=== PATIENT | female | born 1990 | race Caucasian/White ===

== ENCOUNTER → 2017-09-01 | Outpatient (REF) | payer OTHER ==
[2017-09-01 22:26] LABS: INFLUENZA A AMPLIFICATION POSITIVE (NEGATIVE); INFLUENZA B AMPLIFICATION NEGATIVE (NEGATIVE); RSV AMPLIFICATION NEGATIVE (NEGATIVE)
== END ==
LOC: M LAB REF 09-05 11:22
DX: J11.1 Influenza due to unidentified influenza virus with other respiratory manifestations (principal)
CPT/HCPCS: 87631

== ENCOUNTER → 2017-10-24 | Outpatient (REF) | payer OTHER ==
[2017-10-24 12:12] LABS: CONTROL LINE HCG INT CTR LINE PRESENT; CONTROL LINE MONO RF C INT CTR LINE PRESENT; HCG, SERUM QUALITATIVE NEGATIVE (NEGATIVE); MONO REFLEX EBV COMP NEGATIVE (NEGATIVE)
[2017-10-24 12:14] LABS: BASO % 0.6 % (0.0-1.0); EOS # 0.3 10^3/uL (0.0-0.50); EOS % 3.6 % (0.0-3.0); HEMATOCRIT 38.6 % (36.0-47.0); HEMOGLOBIN 12.6 g/dl (12.0-16.0); IMMATURE GRANULOCYTE % 0.3 % (0-3.0); LYMPH # 2.3 10^3/uL (1.5-6.5); LYMPH % 33.4 % (24.0-44.0); MEAN CORPUSCULAR HEMOGLOBIN 31.2 pg (27.0-33.0); MEAN CORPUSCULAR HGB CONC 32.6 g/dl (32.0-36.5); MEAN CORPUSCULAR VOLUME 95.5 fl (80.0-96.0); MONO # 0.6 10^3/uL (0.0-0.8); MONO % 8.9 % (0.0-5.0); NEUTROPHILS # 3.7 10^3/uL (1.8-7.7); NEUTROPHILS % 53.2 % (36.0-66.0); PLATELET COUNT, AUTOMATED 200 10^3/uL (150-450); RED BLOOD COUNT 4.04 10^6/uL (4.00-5.40); RED CELL DISTRIBUTION WIDTH 12.6 % (11.5-14.5); WHITE BLOOD COUNT 6.9 10^3/uL (4.0-10.0)
[2017-10-24 12:36] LABS: ALBUMIN 4.2 GM/DL (3.2-5.2); ALKALINE PHOSPHATASE 47 U/L (45-117); ALT/SGPT 15 U/L (12-78); ANION GAP 5 MEQ/L (8-16); AST/SGOT 13 U/L (7-37); BILIRUBIN,TOTAL 0.5 MG/DL (0.2-1.0); BLOOD UREA NITROGEN 16 MG/DL (7-18); CALCIUM LEVEL 8.8 MG/DL (8.5-10.1); CARBON DIOXIDE LEVEL 25 MEQ/L (21-32); CHLORIDE LEVEL 112 MEQ/L (98-107); CREATININE FOR GFR 0.76 MG/DL (0.55-1.30); FREE T4 0.96 NG/DL (0.76-1.46); GLOMERULAR FILTRATION RATE > 60.0 (>60); GLUCOSE, FASTING 81 MG/DL (70-100); POTASSIUM SERUM 4.2 MEQ/L (3.5-5.1); SODIUM LEVEL 142 MEQ/L (136-145); TOTAL PROTEIN 7.2 GM/DL (6.4-8.2)
[2017-10-26 00:08] LABS: EBV VIRAL CAPSID AG IgM <36.0 U/mL (0.0-35.9)
[2017-10-26 00:08] LABS: EBV AB TO NUCLEAR ANTIGEN 81.9 U/mL (0.0-17.9)
== END ==
LOC: M SFHCPLAZ 08:55
DX: Z00.00 Encounter for general adult medical examination without abnormal findings (principal); R11.2 Nausea with vomiting, unspecified; R59.0 Localized enlarged lymph nodes

== ENCOUNTER → 2018-02-15 | Outpatient (CLI) | payer OTHER ==
[2018-02-15 16:34] LABS: BASO % 0.5 % (0.0-1.0); EOS # 0.1 10^3/uL (0.0-0.50); EOS % 1.4 % (0.0-3.0); HEMATOCRIT 38.2 % (36.0-47.0); HEMOGLOBIN 12.7 g/dl (12.0-15.5); IMMATURE GRANULOCYTE % 0.3 % (0-3.0); LYMPH # 2.1 10^3/uL (1.5-6.5); MEAN CORPUSCULAR HGB CONC 33.2 g/dl (32.0-36.5); MEAN CORPUSCULAR VOLUME 96.2 fl (80.0-96.0); MONO # 0.4 10^3/uL (0.0-0.8); MONO % 6.6 % (0.0-5.0); NEUTROPHILS # 3.9 10^3/uL (1.8-7.7); NEUTROPHILS % 59.2 % (36.0-66.0); PLATELET COUNT, AUTOMATED 211 10^3/uL (150-450); RED BLOOD COUNT 3.97 10^6/uL (4.00-5.40); RED CELL DISTRIBUTION WIDTH 12.3 % (11.5-14.5); WHITE BLOOD COUNT 6.5 10^3/uL (4.0-10.0)
[2018-02-15 17:00] LABS: ALBUMIN 3.9 GM/DL (3.2-5.2); ALBUMIN/GLOBULIN RATIO 1.08 (1.00-1.93); ALKALINE PHOSPHATASE 40 U/L (45-117); ALT/SGPT 19 U/L (12-78); ANION GAP 7 MEQ/L (8-16); AST/SGOT 12 U/L (7-37); BILIRUBIN,TOTAL 0.5 MG/DL (0.2-1.0); BLOOD UREA NITROGEN 16 MG/DL (7-18); C REACTIVE PROTEIN QUANTITATIV < 0.30 MG/DL (0.00-0.30); CALCIUM LEVEL 8.9 MG/DL (8.5-10.1); CARBON DIOXIDE LEVEL 26 MEQ/L (21-32); CHLORIDE LEVEL 106 MEQ/L (98-107); CREATININE FOR GFR 0.85 MG/DL (0.55-1.30); GLOMERULAR FILTRATION RATE > 60.0 (>60); GLUCOSE, FASTING 96 MG/DL (70-100); POTASSIUM SERUM 4.7 MEQ/L (3.5-5.1); RHEUMATOID FACTOR QUANT < 10.0 IU/ML (<15.0); SODIUM LEVEL 139 MEQ/L (136-145); TOTAL PROTEIN 7.5 GM/DL (6.4-8.2); URIC ACID 2.4 MG/DL (2.6-6.0)
[2018-02-15 17:19] LABS: ERYTHROCYTE SEDIMENTATION RATE 5 mm/hr (0-20)
[2018-02-18 00:06] LABS: CYCLIC CITRULLINATED PEPTIDE 7 units (0-19)
[2018-02-18 00:06] LABS: ANTINUCLEAR ANTIBODIES DIRECT Negative (Negative)
== END ==
LOC: M LAB 15:42
DX: M25.461 Effusion, right knee (principal)
CPT/HCPCS: 73564

== ENCOUNTER → 2018-02-22 | Outpatient (CLI) | payer OTHER | LOC: M RAD 17:07 | DX: M79.89 Other specified soft tissue disorders (principal) | CPT/HCPCS: 93971 ==

== ENCOUNTER → 2018-05-23 | Outpatient (REF) | payer OTHER ==
[2018-05-23 17:47] LABS: RETICULOCYTE # 58.4 10^9/L (17-77); RETICULOCYTE % 1.4 % (0.5-1.5)
[2018-05-23 22:21] LABS: FERRITIN 21 NG/ML (8-252); IRON (FE) 110 UG/DL (50-170); PERCENT SATURATION 23.5 % (13.2-45.0); TOTAL IRON BINDING CAPACITY 469 UG/DL (250-450)
[2018-05-23 22:25] LABS: FOLATE 8.2 NG/ML (>5.4)
[2018-05-23 22:45] LABS: GOLD SPEC TUBE RECIEVED
== END ==
LOC: M SFHCPLAZ 16:09
DX: D53.9 Nutritional anemia, unspecified (principal)

== ENCOUNTER → 2018-11-23 | Outpatient (REF) | payer OTHER ==
[~2018-11-23] MED LIST: DOCU10CA PO; IBUP80TA PO; MAPA500T2 PO; MOM30SS PO; VITAPRTA PO
[2018-11-23 13:46] LABS: HEMATOCRIT 43.3 % (36.0-47.0); MEAN CORPUSCULAR HEMOGLOBIN 30.8 pg (27.0-33.0); MEAN CORPUSCULAR HGB CONC 32.3 g/dl (32.0-36.5); MEAN CORPUSCULAR VOLUME 95.2 fl (80.0-96.0); PLATELET COUNT, AUTOMATED 282 10^3/uL (150-450); RED BLOOD COUNT 4.55 10^6/uL (4.00-5.40); WHITE BLOOD COUNT 6.2 10^3/uL (4.0-10.0)
[2018-11-23 14:19] LABS: FREE T4 1.06 NG/DL (0.76-1.46); PERCENT SATURATION 27.9 % (13.2-45.0); THYROID STIMULATING HORMONE 0.467 uIU/ML (0.358-3.740)
[2018-11-23 14:35] LABS: TOTAL 25(OH) VITAMIN D 32.2 NG/ML (30.0-100.0)
== END ==
LOC: M SFHCPLAZ 10:21
PROVIDERS: ATTEND Nurse Practitioner Family
DX: D50.9 Iron deficiency anemia, unspecified (principal); R53.83 Other fatigue

== ENCOUNTER → 2019-02-15 | Outpatient (REF) | payer OTHER ==
[2019-02-16 11:59] LABS: CHLAMYDIA DNA AMPLIFICATION NEGATIVE (NEGATIVE); GC DNA AMPLIFICATION NEGATIVE (NEGATIVE)
== END ==
LOC: M SFHCPLAZ 09:58
PROVIDERS: ATTEND Nurse Practitioner Family
DX: Z01.419 Encounter for gynecological examination (general) (routine) without abnormal findings (principal); Z11.3 Encounter for screening for infections with a predominantly sexual mode of transmission

== ENCOUNTER → 2019-03-16 | Outpatient (REF) | payer OTHER ==
[2019-03-16 19:29] LABS: CHLAMYDIA DNA AMPLIFICATION NEGATIVE (NEGATIVE); GC DNA AMPLIFICATION NEGATIVE (NEGATIVE)
== END ==
LOC: M SFHCPLAZ 16:44
PROVIDERS: ATTEND Nurse Practitioner Family
DX: N76.0 Acute vaginitis (principal)

== ENCOUNTER → 2020-07-18 | Outpatient (REF) | payer OTHER | LOC: M LAB REF 19:24 | PROVIDERS: ATTEND Physician Assistant | DX: Z11.59 Encounter for screening for other viral diseases (principal) ==

== ENCOUNTER → 2020-10-28 | Outpatient (REF) | payer OTHER ==
[2020-10-28 20:39] LABS: CHLAMYDIA DNA AMPLIFICATION NEGATIVE (NEGATIVE); GC DNA AMPLIFICATION NEGATIVE (NEGATIVE)
== END ==
LOC: M LAB REF 17:12
PROVIDERS: ATTEND Nurse Practitioner Family
DX: Z11.3 Encounter for screening for infections with a predominantly sexual mode of transmission (principal)

== ENCOUNTER → 2022-04-14 | Outpatient (REF) | payer OTHER ==
[2022-04-15 13:11] LABS: GC DNA AMPLIFICATION NEGATIVE (NEGATIVE)
== END ==
LOC: M LAB REF 10:13
PROVIDERS: ATTEND Nurse Practitioner Family
DX: Z12.4 Encounter for screening for malignant neoplasm of cervix (principal)

== ENCOUNTER → 2022-06-17 | Outpatient (REF) | payer OTHER | LOC: M LAB REF 16:46 | PROVIDERS: ATTEND Registered Nurse | DX: N76.0 Acute vaginitis (principal) ==

== ENCOUNTER → 2023-10-13 | Outpatient (REF) | payer OTHER ==
[2023-10-13 18:52] LABS: Trichomonas vaginalis (AMP) NOT DETECTED (NEGATIVE)
[2023-10-13 19:16] LABS: GC DNA AMPLIFICATION NEGATIVE (NEGATIVE)
== END ==
LOC: M LAB REF 16:56
PROVIDERS: ATTEND Registered Nurse
DX: Z11.3 Encounter for screening for infections with a predominantly sexual mode of transmission (principal)

== ENCOUNTER → 2023-10-18 | Outpatient (REF) | payer OTHER | LOC: M LAB REF 17:02 | PROVIDERS: ATTEND Nurse Practitioner Family | DX: Z11.3 Encounter for screening for infections with a predominantly sexual mode of transmission (principal) ==

== ENCOUNTER → 2025-05-13 | Outpatient (REF) | payer OTHER ==
[~2025-05-13] MED LIST changes: +METH-1164 PO; +ROPI0.5T33
[2025-05-13 16:26] LABS: BASO # 0.1 10^3/uL (0.0-0.2); BASO % 1.1 % (0.0-1.0); EOS # 0.2 10^3/uL (0.0-0.5); EOS % 2.1 % (0.0-3.0); LYMPH # 3.8 10^3/uL (1.5-5.0); LYMPH % 42.4 % (24.0-44.0); MONO # 0.7 10^3/uL (0.0-0.8); MONO % 7.6 % (2.0-8.0); NEUTROPHILS # 4.1 10^3/uL (1.5-8.5); NEUTROPHILS % 46.6 % (36.0-66.0); PLATELET COUNT, AUTOMATED 262 10^3/uL (150-450)
[2025-05-13 16:48] LABS: ESTIMATED AVERAGE GLUCOSE 108.0 MG/DL (60-110)
[2025-05-13 17:02] LABS: CALCIUM LEVEL 9.0 MG/DL (8.5-10.1); CARBON DIOXIDE LEVEL 26 MMOL/L (20-31); CHLORIDE LEVEL 107 MMOL/L (98-107); CHOLESTEROL LEVEL 195 MG/DL (<200); CHOLESTEROL RISK RATIO 5.31 (<5); CREATININE FOR GFR 0.86 MG/DL (0.55-1.30); GLOMERULAR FILTRATION RATE 89.7 (>60); IRON (FE) 72 UG/DL (50-170); LDL CHOLESTEROL 104.3 MG/DL (<100); MAGNESIUM LEVEL 2.1 MG/DL (1.8-2.4); NON-HDL-C 158.3 MG/DL; PERCENT SATURATION 20.5 % (13.2-45.0); POTASSIUM SERUM 4.3 MMOL/L (3.5-5.1); SODIUM LEVEL 141 MMOL/L (136-145); TRIGLYCERIDES LEVEL 270 MG/DL (<150)
[2025-05-13 17:28] LABS: HIV 1&2 SCREEN NEGATIVE (NEGATIVE)
[2025-05-13 17:37] LABS: HEPATITIS C VIRUS ABY INDEX < 0.02 INDEX (<0.8)
== END ==
LOC: M LAB REF 16:12
PROVIDERS: ATTEND Nurse Practitioner Family
DX: E66.3 Overweight (principal); R53.83 Other fatigue; N92.0 Excessive and frequent menstruation with regular cycle; Z11.9 Encounter for screening for infectious and parasitic diseases, unspecified; G25.81 Restless legs syndrome